=== PATIENT | male | born 1955 | race Caucasian/White ===

== ENCOUNTER 2020-06-03 12:17 | Outpatient (CLI) | payer MEDICARE | END 2020-06-03 12:18 | disposition home or self-care (01) | LOC: COV 12:17 | PROVIDERS: ATTEND Family Medicine | DX: R06.02 Shortness of breath (principal); M79.10 Myalgia, unspecified site; R53.83 Other fatigue; R68.83 Chills (without fever); R19.7 Diarrhea, unspecified; R43.8 Other disturbances of smell and taste; Z20.828 Contact with and (suspected) exposure to other viral communicable diseases ==

== ENCOUNTER 2021-04-15 08:24 | Emergency (ER) | payer MEDICARE, MEDICAID ==
[2021-04-15] MEDS ORDERED: KETOROLAC 30 MG/ML VIAL IVP STA (08:55)
[2021-04-15] MEDS ORDERED: DEXAMETHASONE 10 MG/ML VIAL IVP STA (08:55)
--- NOTE | 2021-04-15 08:57 | ED Physician Documentation ---
History of Present Illness - Stated complaint Stated Complaint: POST SURGICAL PX - Chief complaint Chief Complaint: Cardiac - History obtained from History obtained from: Family - History of Present Illness Timing: Enter time (1400), Yesterday - Additonal information Additional information: 65-year-old male who has recently had a stent put into the right common iliac artery about 4 days ago has now developed acute back pain and pain in the right leg. The patient states that for the past 2 years he has not been able to walk more than 50 feet secondary to pain and cramping in his right leg. He has had this repaired with a stent done in [place] 4 days ago. He subsequently has been able to walk considerably longer distance and he has been walking around his sister's house around the outside. He felt that this was going well. Yesterday at about 2:00 in the afternoon he was sitting in the sun when he had the sudden onset of pain in his back radiating around to the left side and pain into his right leg. Pain in the right leg is to the calf anteriorly and he is still able to walk and has a warm foot. Review of Systems Constitutional: denies: Fever Eyes: denies: Decreased vision Ears: denies: Ear pain Nose: denies: Congestion Throat: denies: Sore throat Cardiac: denies: Chest pain / pressure, Palpitations Respiratory: denies: Dyspnea, Cough GI: denies: Abdominal Pain, Nausea, Vomiting, Constipation, Diarrhea : denies: Dysuria, Frequency Skin: denies: Rash Musculoskeletal: reports: Back pain, Extremity pain. denies: Neck pain Neurologic: denies: Generalized weakness, Focal weakness, Numbness PD PAST MEDICAL HISTORY - Past Medical History Cardiovascular: Hypertension, High cholesterol, Coronary artery disease Endocrine/Autoimmune: Type 2 diabetes - Past Surgical History Past Surgical History: Yes Cardiovascular: Coronary stent - Present Medications Home Medications: Ambulatory Orders Medication Instructions Recorded Confirmed Atenolol 50 mg PO BID 11/12/13 04/15/21 Cholecalciferol (Vitamin D3) 400 unit PO DAILY 11/12/13 04/15/21 [Vitamin D] HYDROcod/ACETAM 5/325 [Vicodin 1 - 2 ea PO Q6H PRN 11/12/13 04/15/21 5/325] metFORMIN [Glucophage] 1,500 mg PO DAILY 11/12/13 04/15/21 Aspirin [[place] Aspirin] 81 mg PO DAILY 04/15/21 04/15/21 Clopidogrel [Plavix] 75 mg PO DAILY 04/15/21 04/15/21 Cyclobenzaprine [Flexeril] 10 mg PO TID PRN #20 tablet 04/15/21 Gabapentin [Neurontin] 300 mg PO TID 04/15/21 04/15/21 HYDROcod/ACETAM 5/325 [[place] 5/325] 1 - 2 tablet PO Q6H PRN #14 tablet 04/15/21 Lactobacillus Combination No.4 1 cap PO DAILY 04/15/21 04/15/21 [Probiotic] Losartan [Cozaar] 100 mg PO DAILY 04/15/21 04/15/21 Mag Carb/Al Hydrox/Alginic AC PRN 04/15/21 [Gaviscon Extra Strength Liquid] Nitroglycerin [Nitrostat] 1 tab SL DAILY PRN 04/15/21 04/15/21 Pramipexole Di-HCl [Mirapex] 1 tab PO TID 04/15/21 04/15/21 Prazosin [Minipress] 1 mg PO DAILY 04/15/21 04/15/21 Rosuvastatin Calcium [Crestor] 20 mg PO DAILY 04/15/21 04/15/21 Sitagliptin Phos/Metformin HCl 1 tab PO DAILY 04/15/21 04/15/21 [Janumet Xr 50-1,000 mg Tablet] buPROPion [Wellbutrin Sr] 150 mg PO BID 04/15/21 04/15/21 hydroCHLOROthiazide [Hydrodiuril] 25 mg PO DAILY 04/15/21 04/15/21 - Allergies Allergies/Adverse Reactions: Allergies Allergy/AdvReac Type Severity Reaction Status Date / Time No Known Drug Allergies Allergy Verified 04/15/21 08:38 - Social History Does the pt smoke?: Yes Smoking Status: Current every day smoker PD ED PE NORMAL - Vitals Vital signs reviewed: Yes (hypertensive ) - General General: Alert and oriented X 3, No acute distress, Well developed/nourished - HEENT HEENT: Atraumatic, PERRL, EOMI - Neck Neck: Supple, no meningeal sign, No bony TTP - Cardiac Cardiac: RRR, No murmur - Respiratory Respiratory: No respiratory distress, Clear bilaterally - Abdomen Abdomen: Normal bowel sounds, Soft, Non tender, Non distended, No organomegaly - Back Back: No CVA TTP, No spinal TTP, Other (no tenderness to the back with pain localized to L2 radiating to the anterior abdomen. ) - Derm Derm: Normal color, Warm and dry, No rash - Extremities Extremities: No deformity, No edema, Other (nice warm foot bilat with trace edema. ) - Neuro Neuro: Alert and oriented X 3, asic design engineer 2-12 intact, No motor deficit, No sensory deficit, Normal speech Eye Opening: Spontaneous Motor: Obeys Commands Verbal: Oriented GCS Score: 15 - Psych Psych: Normal mood, Normal affect Results - Vitals Vitals: Vital Signs - 24 hr 04/15/21 04/15/21 04/15/21 08:34 10:38 12:00 Temperature 36.3 C L 36.5 C Heart Rate 68 69 67 Respiratory 18 16 15 Rate Blood Pressure 158/70 H 173/80 H 153/75 H O2 Saturation 98 98 99 04/15/21 12:55 Temperature Heart Rate 65 Respiratory 14 Rate Blood Pressure 160/100 H O2 Saturation 99 Oxygen O2 Source Room air - Labs Labs: Laboratory Tests 04/15/21 04/15/21 09:07 09:07 WBC 7.4 RBC 3.75 L Hgb 11.6 L Hct 33.0 L MCV 88.0 MCH 30.9 MCHC 35.2 RDW 12.6 Plt Count 99 L MPV 8.6 Neut # (Auto) 5.5 Lymph # (Auto) 1.0 L Mcminn # (Auto) 0.8 Eos # (Auto) 0.1 Baso # (Auto) 0.0 Absolute Nucleated RBC 0.00 Nucleated RBC % 0.0 Sodium 133 L Potassium 4.6 Chloride 99 L Carbon Dioxide 26 Anion Gap 8.0 BUN 31 H Creatinine 1.5 H Estimated GFR (MDRD) 47 L Glucose 255 H Calcium 9.1 Total Bilirubin 0.5 AST 15 ALT 17 Alkaline Phosphatase 54 Total Protein 7.3 Albumin 4.0 Globulin 3.3 Albumin/Globulin Ratio 1.2 Lipase 36 - Rads (name of study) CTA ab/pel Radiology: Prelim report reviewed PD MEDICAL DECISION MAKING - ED course Complexity details: reviewed old records, reviewed results, re-evaluated patient, considered differential, d/w patient, d/w vocational rehabilitation consultant ([place] program management professional for Dr. Vences recommends close interval follow up. Checked femoral pulse +. No signs of inflamation to the site. ) ED course: 65-year-old male who has been extremely sedentary over the past 2 years secondary to claudication has had his claudication fixed in his right lower extremity and he is now ambulating significantly more than he has recently. He has now developed pain in his back. I suspect this is the culprit. He has had a recent stent placement and we checked his stent with a CT angio with runoff and we find the runoff to be adequate and it is not possible to evaluate the recent stent. Clinically the patient has improvement in his pain with treatment with Toradol and dexamethasone he has further improvement with the use of morphine. He is able to get up and ambulate in the emergency department without pain to either leg. Pain in his back is improved. I suspect this is a typical postoperative feeling better overdid it new symptoms. We did do a bladder scan after the patient voided with 164ml residual. CTA lower ext. Impression: 1. Possible in-stent occlusion of the right common iliac artery stent however due to the narrow caliber of the stent and the artifact from the metallic stent, opacification within the stent is not well evaluated. Nevertheless distal to the stent right external iliac artery and right leg arteries distally are patent. Catheter angiogram would be necessary for better evaluation if needed. The bladder is significantly distended. Multifocal areas of atherosclerotic calcification and areas of moderate stenosis as above. Departure - Departure Disposition: 01 Home, Self Care Clinical Impression: Sciatica Qualifiers: Laterality: right Qualified Code(s): M54.31 - Sciatica, right side Condition: Stable Instructions: ED Sciatica Follow-Up: Mejia Vences MD [Physician No Access] - [facility] [Provider Group] Prescriptions: Cyclobenzaprine [Flexeril] 10 mg PO TID PRN #20 tablet PRN Reason: Spasms HYDROcod/ACETAM 5/325 [[place] 5/325] 1 - 2 tablet PO Q6H PRN #14 tablet PRN Reason: Pain
[2021-04-15 09:15] LABS: BASOPHILS % (AUTO) 0.1 %; EOSINOPHILS # (AUTO) 0.1 10^3/uL (0.0-0.7); EOSINOPHILS % (AUTO) 1.3 %; HGB - HEMOGLOBIN 11.6 g/dL (14.0-18.0); LYMPHOCYTES % (AUTO) 13.9 %; MEAN CORPUSCULAR HEMOGLOBIN 30.9 pg (27.0-31.0); MEAN CORPUSCULAR HGB CONC 35.2 g/dL (32.0-36.0); MEAN PLATELET VOLUME 8.6 fL (7.4-11.4); MONOCYTES # (AUTO) 0.8 10^3/uL (0.0-1.0); MONOCYTES % (AUTO) 10.1 %; NEUTROPHILS # (AUTO) 5.5 10^3/uL (1.5-6.6); NEUTROPHILS % (AUTO) 73.9 %; PLT - PLATELET COUNT 99 10^3/uL (130-450); RED BLOOD COUNT 3.75 10^6/uL (4.70-6.10); RED CELL DISTRIBUTION WIDTH 12.6 % (12.0-15.0); WHITE BLOOD COUNT 7.4 x10^3/uL (4.8-10.8)
[2021-04-15 09:26] LABS: ALBUMIN/GLOBULIN RATIO 1.2 (1.0-2.2); BILIRUBIN,TOTAL 0.5 mg/dL (0.2-1.0); CALCIUM 9.1 mg/dL (8.5-10.3); CREATININE 1.5 mg/dL (0.6-1.2); POTASSIUM 4.6 mmol/L (3.5-5.0); TOTAL PROTEIN 7.3 g/dL (6.7-8.2)
[2021-04-15] MEDS ORDERED: IOVERSOL 320 100 ML VIAL IVP ONE ×2 (09:33→12:07)
[2021-04-15] MEDS ORDERED: SODIUM CHLORIDE 0.9% 1,000 ML IV STA (10:00)
--- NOTE | 2021-04-15 10:58 | CT Report ---
PROCEDURE: ANGIO ABD RUNOFF W/WO - B/L INDICATIONS: stent placed 4 d ago sudden severe pain back leg CONTRAST: IV CONTRAST: Optiray 320 ml: 125 PO CONTRAST: *NO PO CONTRAST TECHNIQUE: After the administration of intravenous contrast, 2 and 5 mm sections acquired from T12 to the feet, with optional delayed image acquisition from the knees to the feet. 3-dimensional maximum intensity projection (MIP) coronal and sagittal reformats, and/or 3-dimensional volume rendering reformatting w as then performed. For radiation dose reduction, the following was used: automated exposure control , adjustment of mA and/or kV according to patient size. COMPARISON: None. FINDINGS: Image quality: Excellent. VASCULAR: The aorta has heavy atherosclerotic calcifications. The celiac trunk and SMA are patent. Th ere are 2 renal arteries bilaterally which are patent but have ostial atherosclerotic disease likely causing at least mild stenosis. The TRINA is patent. A right common iliac artery stent has been placed. Artifact from the stent limits visibility of the degree of opacification within the stent and in-joe nt thrombus cannot be excluded. Distal to the stent however the external iliac artery is patent, salomon reyes this could be filling from the internal iliac artery. The right common and deep femoral arteries are patent. There is a moderate stenosis in the right dist al SFA. The right popliteal artery is patent. The right infrapopliteal arteries have diffuse atherosc lerotic disease but are patent with a three-vessel runoff. The left common iliac artery has a moderate stenosis at the origin. The left internal and external il iac arteries have multifocal atherosclerotic disease with no focal stenosis. The left common femoral artery has a moderate stenosis. The left deep femoral artery is patent. The left distal superficial f emoral artery has a moderate stenosis. The left popliteal artery is patent. The left infrapopliteal a rteries have diffuse atherosclerotic disease but are patent with a three-vessel runoff. ABDOMEN: Lung bases: Lung bases are clear. Heart size is normal. Solid organs: Liver: The liver has no mass or intrahepatic biliary ductal dilatation. [] Biliary: The gallbladder demonstrates multiple layering stones. There is no gallbladder wall thickeni ng or pericholecystic fluid. [] Pancreas: The pancreas has no mass or ductal dilatation. No surrounding inflammation. [] Spleen: Normal size. No mass. [] Adrenal glands: No hypertrophy or nodules. [] Kidneys: No obstructive calculus or hydronephrosis. No solid mass. No cystic mass. [] Bowel: The distal esophagus and stomach are normal. The small bowel has a normal caliber and appeara nce. The terminal ileum is normal. The large bowel has diverticulosis with no evidence of diverticu litis. [] Free air/free fluid: No free air or free fluid. [] Abdominal wall: No abdominal wall mass or hernia. [] Retroperitoneum: No retroperitoneal or mesenteric adenopathy by size criteria. [] Lymph nodes: No adenopathy. [] Bones: No suspicious bony lesions. Multilevel degenerative changes [] PELVIS: Genitourinary: [Bladder wall thickness is normal. ] The bladder is distended. Miscellaneous: [No inguinal hernias or adenopathy. ] [] Bones: [No suspicious bony lesions. No vertebral body compression fractures. ] IMPRESSION: 1. Possible in-stent occlusion of the right common iliac artery stent, however due to the narrow kim aureliano of the stent and artifact from the metallic stent, the opacification within the stent is not well evaluated. Nevertheless distal to the stent the right external iliac artery and right leg arteries d istally are patent. Catheter angiogram would be necessary for better evaluation if needed. 2. The bladder is significantly distended. 3. Multifocal areas of atherosclerotic calcification and areas of moderate stenosis as above. Reviewed by: Lawson Leung on 04/15/2021 10:57 AM PDT Approved by: Lawson Leung on 04/15/2021 10:57 AM PDT Station ID: [id number]
[2021-04-15] MEDS ORDERED: MORPHINE 2 MG/ML CARPUJECT IVP STA (11:07)
[2021-04-15] MEDS ORDERED: ONDANSETRON 4 MG/2 ML VIAL IVP STA (11:07)
[2021-04-15 12:56] VITALS: BP 160/100
== END 2021-04-15 13:05 | disposition home or self-care (01) ==
LOC: ED 08:24
DX: M54.31 Sciatica, right side (principal); Z95.820 Peripheral vascular angioplasty status with implants and grafts
CPT/HCPCS: 36415; 75635; 80053; 83690; 85025; 96374; 96375; 99284; 99285; Q9967

== ENCOUNTER 2022-04-27 08:00 | Outpatient (CLI) | payer MEDICARE, MEDICAID ==
[2022-04-27 17:35] LABS: BASOPHILS % (AUTO) 0.1 %; EOSINOPHILS # (AUTO) 0.1 10^3/uL (0.0-0.7); EOSINOPHILS % (AUTO) 0.4 %; HCT - HEMATOCRIT 28.1 % (42.0-52.0); HGB - HEMOGLOBIN 9.6 g/dL (14.0-18.0); LYMPHOCYTES # (AUTO) 0.9 10^3/uL (1.5-3.5); LYMPHOCYTES % (AUTO) 6.3 %; MEAN CORPUSCULAR HEMOGLOBIN 29.8 pg (27.0-31.0); MEAN CORPUSCULAR HGB CONC 34.2 g/dL (32.0-36.0); MEAN CORPUSCULAR VOLUME 87.3 fL (80.0-94.0); MEAN PLATELET VOLUME 8.7 fL (7.4-11.4); MONOCYTES # (AUTO) 1.2 10^3/uL (0.0-1.0); MONOCYTES % (AUTO) 8.6 %; NEUTROPHILS # (AUTO) 11.7 10^3/uL (1.5-6.6); PLT - PLATELET COUNT 192 10^3/uL (130-450); RED BLOOD COUNT 3.22 10^6/uL (4.70-6.10); RED CELL DISTRIBUTION WIDTH 12.8 % (12.0-15.0); WHITE BLOOD COUNT 13.9 x10^3/uL (4.8-10.8)
[2022-04-27 18:01] LABS: ALBUMIN 3.1 g/dL (3.2-5.5); ALBUMIN/GLOBULIN RATIO 0.8 (1.0-2.2); BILIRUBIN,TOTAL 0.5 mg/dL (0.2-1.0); CALCIUM 8.4 mg/dL (8.5-10.3); CREATININE 1.5 mg/dL (0.6-1.2); POTASSIUM 4.5 mmol/L (3.5-5.0); TOTAL PROTEIN 6.8 g/dL (6.7-8.2)
== END 2022-04-27 23:59 | disposition home or self-care (01) ==
LOC: LAB.N 08:00
PROVIDERS: ATTEND Registered Nurse
DX: D72.828 Other elevated white blood cell count (principal); R31.9 Hematuria, unspecified; R79.82 Elevated C-reactive protein (CRP)
CPT/HCPCS: 36415; 80053; 85025; 86140; 87086

== ENCOUNTER 2023-05-19 19:18 | Emergency (ER) | payer MEDICARE, MEDICAID ==
--- NOTE | 2023-05-19 20:13 | ED Physician Documentation ---
PD HPI UPPER EXT INJURY - Stated complaint Stated Complaint: GLF,L ARM LAC - Chief complaint Chief Complaint: Ext Problem - History obtained from History obtained from: Patient - Additonal information Additional information: HPI from patient. Approximately 1 hour prior to arrival, patient was walking down stairs at his home when he missed the last step, causing him to fall onto outstretched hand. He complains of sudden onset of left wrist and left distal forearm pain. He also sustained a left forearm skin tear from the fall. Patient is right-hand dominant. Patient is up-to-date on tetanus. Patient denies head injury, denies any other injury besides the left forearm/wrist Review of Systems Skin: reports: Other (Skin tear) Musculoskeletal: reports: Extremity pain, Joint pain. denies: Neck pain, Back pain, Extremity swelling, Joint swelling, Pain with weight bearing Neurologic: denies: Focal weakness, Numbness, Headache, Head injury PD PAST MEDICAL HISTORY - Past Medical History Past Medical History: Yes Cardiovascular: Hypertension, High cholesterol, Coronary artery disease Endocrine/Autoimmune: Type 2 diabetes - Past Surgical History Past Surgical History: Yes Cardiovascular: Coronary stent - Present Medications Home Medications: Ambulatory Orders Medication Instructions Recorded Confirmed Atenolol 50 mg PO BID 11/12/13 04/15/21 Cholecalciferol (Vitamin D3) 400 unit PO DAILY 11/12/13 04/15/21 [Vitamin D] HYDROcod/ACETAM 5/325 [Vicodin 1 - 2 ea PO Q6H PRN 11/12/13 04/15/21 5/325] metFORMIN [Glucophage] 1,500 mg PO DAILY 11/12/13 04/15/21 Aspirin [[place] Aspirin] 81 mg PO DAILY 04/15/21 04/15/21 Clopidogrel [Plavix] 75 mg PO DAILY 04/15/21 04/15/21 Cyclobenzaprine [Flexeril] 10 mg PO TID PRN #20 tablet 04/15/21 Gabapentin [Neurontin] 300 mg PO TID 04/15/21 04/15/21 HYDROcod/ACETAM 5/325 [[place] 5/325] 1 - 2 tablet PO Q6H PRN #14 tablet 04/15/21 Lactobacillus Combination No.4 1 cap PO DAILY 04/15/21 04/15/21 [Probiotic] Losartan [Cozaar] 100 mg PO DAILY 04/15/21 04/15/21 Mag Carb/Al Hydrox/Alginic AC PRN 04/15/21 [Gaviscon Extra Strength Liquid] Nitroglycerin [Nitrostat] 1 tab SL DAILY PRN 04/15/21 04/15/21 Pramipexole Di-HCl [Mirapex] 1 tab PO TID 04/15/21 04/15/21 Prazosin [Minipress] 1 mg PO DAILY 04/15/21 04/15/21 Rosuvastatin Calcium [Crestor] 20 mg PO DAILY 04/15/21 04/15/21 Sitagliptin Phos/Metformin HCl 1 tab PO DAILY 04/15/21 04/15/21 [Janumet Xr 50-1,000 mg Tablet] buPROPion [Wellbutrin Sr] 150 mg PO BID 04/15/21 04/15/21 hydroCHLOROthiazide [Hydrodiuril] 25 mg PO DAILY 04/15/21 04/15/21 - Allergies Allergies/Adverse Reactions: Allergies Allergy/AdvReac Type Severity Reaction Status Date / Time No Known Drug Allergies Allergy Verified 05/19/23 19:30 - Social History Does the pt smoke?: Yes Smoking Status: Current every day smoker Does the pt drink ETOH?: No Does the pt have substance abuse?: Yes Substance Use and Type: Marijuana - Immunizations Immunizations are current?: No - POLST Patient has POLST: No PD ED PE NORMAL - Vitals Vital signs reviewed: Yes - General General: Alert and oriented X 3, No acute distress, Well developed/nourished - Neuro Neuro: No motor deficit (full strength liquid center assembler, finger extension, finger abduction), No sensory deficit (LTS intact left hand, fingers) PD ED PE EXPANDED - Extremities BREANNA UE/Hands Visual: 1 - swelling, tenderness 2 - abrasion (skin tear) Results - Vitals Vitals: Vital Signs - 24 hr 05/19/23 05/19/23 19:24 21:38 Temperature 37.0 C 37.0 C Heart Rate 84 82 Respiratory 18 16 Rate Blood Pressure 152/79 H 140/80 H O2 Saturation 98 100 Oxygen O2 Source Room air - Rads (name of study) left FA xrays Relevant Findings:: Prelim report reviewed, See rad report PD Medical Decision Making - ED course Complexity details: reviewed results, re-evaluated patient, considered differential, d/w patient, d/w family ED course: No evidence of injury (fracture, dislocation) on plain-film left forearm x-rays. A left wrist Velcro splint is placed for comfort and an to speed healing. Bacitracin is placed on the left forearm skin tear and dressing applied. X-ray results reviewed with patient, advised to follow-up with primary care provider in 3 to 5 days if his symptoms have not significantly improved by then. I encouraged him to wear the splint during the day for the next 5 to 7 days. Departure - Departure Disposition: 01 Home, Self Care Clinical Impression: Skin tear Left wrist sprain Qualifiers: Encounter type: initial encounter Qualified Code(s): S63.502A - Unspecified sprain of left wrist, initial encounter Condition: Good Instructions: ED Avulsion Dermal, ED Splint Care Velcro, ED Sprain Wrist Follow-Up: Tisha Snow MD [Primary Care Provider] - (3-5 days if symptoms persist) Comments: The x-rays do not show any evidence of fracture nor dislocation. You are being provided a splint because decreasing mobilization by using the splint will speed healing of what is likely a wrist sprain. Follow-up with your primary care provider in 3 to 5 days if your pain is not significantly improving by then. Forms: PCP List Discharge Date/Time: 05/19/23 21:38
--- NOTE | 2023-05-19 21:01 | XRAY Report ---
PROCEDURE: Forearm LT INDICATIONS: fall, left FA pain, tenderness TECHNIQUE: 2 views of the forearm were acquired. COMPARISON: None. FINDINGS: Bones: No fractures or dislocations. No suspicious bony lesions. Soft tissues: No suspicious soft tissue calcifications or masses. IMPRESSION: No gross acute forearm fracture or dislocation is seen. Reviewed by: Nikolas Cox MD on 05/19/2023 8:59 PM PST Approved by: Nikolas Cox MD on 05/19/2023 8:59 PM [facility] Station ID: [id number]
[2023-05-19] MEDS ORDERED: BACITRACIN ZINC OINT 1 PACKET TOP STA (21:19)
[2023-05-19 21:41] VITALS: BP 140/80; O2SAT 100
== END 2023-05-19 21:38 | disposition home or self-care (01) ==
LOC: ED 19:18
DX: S51.812A Laceration without foreign body of left forearm, initial encounter (principal); S63.502A Unspecified sprain of left wrist, initial encounter; W10.9XXA Fall (on) (from) unspecified stairs and steps, initial encounter; Y93.89 Activity, other specified; Y92.009 Unspecified place in unspecified non-institutional (private) residence as the place of occurrence of the external cause; F17.200 Nicotine dependence, unspecified, uncomplicated
CPT/HCPCS: 73090; 99282; A9270

== ENCOUNTER 2023-09-07 11:09 | Outpatient (CLI) | payer MEDICARE, MEDICAID | END 2023-09-07 11:10 | disposition critical access hospital (66) | LOC: EMS 11:09 | DX: R06.09 Other forms of dyspnea (principal); R19.7 Diarrhea, unspecified; R06.2 Wheezing | CPT/HCPCS: A0425; A0427 ==

== ENCOUNTER 2023-09-07 11:36 | Emergency (ER) | payer MEDICARE, MEDICAID ==
--- NOTE | 2023-09-07 12:43 | ED Physician Documentation ---
PD HPI DYSPNEA - Stated complaint Stated Complaint: SOA/COLD LIKE SX - Chief complaint Chief Complaint: Resp - Additional information Additional information: 68-year-old male with COPD who smokes about a pack per day presents emergency department for increased shortness of breath. Patient says that he has been having upper respiratory infection symptoms now for the last 3 to 4 days he lives at home with family he is normally on room air has never required supplemental oxygen. Patient says that he was having a hard time walking from his bedroom to the bathroom without feeling like he was going to pass out because of how much he was having a hard time breathing. On room air patient is satting around 86 to 85%. He denies any chest pain unsure if he had any fevers or chills at home. He does not have any COPD medications no inhalers or anything else at home. And route he received a DuoNeb as well as 125 mg of Solu-Medrol via EMS. PD PAST MEDICAL HISTORY - Past Medical History Cardiovascular: Hypertension, High cholesterol, Coronary artery disease Endocrine/Autoimmune: Type 2 diabetes - Past Surgical History Past Surgical History: Yes Cardiovascular: Coronary stent - Present Medications Home Medications: Ambulatory Orders Medication Instructions Recorded Confirmed Cholecalciferol (Vitamin D3) 400 unit PO DAILY 11/12/13 09/07/23 [Vitamin D] Aspirin [[place] Aspirin] 81 mg PO DAILY 04/15/21 09/07/23 Gabapentin [Neurontin] 600 mg PO TID 04/15/21 09/07/23 Lactobacillus Combination No.4 1 cap PO DAILY 04/15/21 09/07/23 [Probiotic] Mag Carb/Al Hydrox/Alginic AC 1 tab PO PRN PRN 04/15/21 09/07/23 [Gaviscon Extra Strength Liquid] Pramipexole Di-HCl [Mirapex] 1 tab PO TID 04/15/21 09/07/23 Rosuvastatin Calcium [Crestor] 20 mg PO HS 04/15/21 09/07/23 Albuterol Sulf [Ventolin Hfa 1 - 2 puffs INH Q4HR PRN #1 gm 09/07/23 Inhaler] Clopidogrel [Plavix] 75 mg PO HS 09/07/23 09/07/23 Doxycycline [Vibramycin] 100 mg PO ONCE 5 Days #5 tablet 09/07/23 Hydrocodone/Acetaminophen 1 tab PO Q4HR 09/07/23 09/07/23 [Hydrocodone-Acetamin 10-325 mg] Losartan [Cozaar] 100 mg PO HS 09/07/23 09/07/23 SITagliptin [Januvia] 100 mg PO DAILY 09/07/23 09/07/23 Tamsulosin [Flomax] 0.4 mg PO HS 09/07/23 09/07/23 amLODIPine [Norvasc] 10 mg PO DAILY 09/07/23 09/07/23 glipiZIDE [Glipizide] 10 mg PO BID 09/07/23 09/07/23 predniSONE [Deltasone] 20 mg PO [id number] 10 Days #21 tab 09/07/23 - Allergies Allergies/Adverse Reactions: Allergies Allergy/AdvReac Type Severity Reaction Status Date / Time No Known Drug Allergies Allergy Verified 09/07/23 11:51 - Social History Does the pt smoke?: Yes Smoking Status: Current every day smoker Does the pt drink ETOH?: No Does the pt have substance abuse?: Yes - Immunizations Immunizations are current?: No - POLST Patient has POLST: No PD ED PE NORMAL - Vitals Vital signs reviewed: Yes - General General: Alert and oriented X 3, No acute distress, Well developed/nourished - HEENT HEENT: Atraumatic - Neck Neck: Supple, no meningeal sign - Cardiac Cardiac: RRR, No murmur, No gallop, Strong equal pulses - Respiratory Respiratory: Other (bilateral wheezing and ronchi) - Derm Derm: Normal color, Warm and dry, No rash - Extremities Extremities: Other (1+ pitting edema bilaterally) Results - Vitals Vitals: Vital Signs - 24 hr 09/07/23 09/07/23 09/07/23 11:40 13:13 13:51 Temperature 36.8 C Heart Rate 66 85 61 Respiratory 18 20 16 Rate Blood Pressure 143/66 H 169/77 H O2 Saturation 92 92 If not protocol 1 : Oxygen Flow, liters/minute 09/07/23 09/07/23 09/07/23 15:00 15:08 16:15 Temperature Heart Rate 84 68 64 Respiratory 18 18 16 Rate Blood Pressure 152/82 H 146/77 H 141/71 H O2 Saturation 91 L 97 91 L If not protocol : Oxygen Flow, liters/minute Oxygen O2 Source Room air - Labs Labs: Laboratory Tests 09/07/23 09/07/23 09/07/23 11:57 13:20 13:20 WBC 8.3 RBC 4.64 L Hgb 14.0 Hct 40.2 L MCV 86.6 MCH 30.2 MCHC 34.8 RDW 12.5 Plt Count 96 L MPV 8.8 Neut # (Auto) 7.1 H Lymph # (Auto) 0.8 L [place] # (Auto) 0.2 Eos # (Auto) 0.0 Baso # (Auto) 0.0 Absolute Nucleated RBC 0.00 Nucleated RBC % 0.0 Manual Slide Review Indicated RBC Morph Micro Appear 1+ ANISOCYTOSIS Sodium 136 Potassium 5.0 H Chloride 106 Carbon Dioxide 23 Anion Gap 7.0 BUN 37 H Creatinine 2.1 H Estimated GFR (MDRD) 31 L Glucose 302 H Calcium 9.6 Magnesium 2.0 Total Bilirubin 0.4 AST 22 ALT 21 Alkaline Phosphatase 95 Total Protein 8.0 Albumin 4.3 Globulin 3.7 Albumin/Globulin Ratio 1.2 Nasal Adenovirus (PCR) NOT DETECTED Nasal B. parapertussis DNA (PCR) NOT DETECTED Nasal Coronavir 229E PCR NOT DETECTED Nasal Coronavir HKU1 PCR DETECTED A Nasal Coronavir NL63 PCR NOT DETECTED Nasal Coronavir OC43 PCR NOT DETECTED Nasal Enterovir/Rhinovir PCR NOT DETECTED Nasal Influenza B PCR NOT DETECTED Nasal Influenza A PCR NOT DETECTED Nasal Parainfluen 1 PCR NOT DETECTED Nasal Parainfluen 2 PCR NOT DETECTED Nasal Parainfluen 3 PCR NOT DETECTED Nasal Parainfluen 4 PCR NOT DETECTED Nasal RSV (PCR) NOT DETECTED Nasal B.pertussis DNA PCR NOT DETECTED Nasal C.pneumoniae (PCR) NOT DETECTED Lencho Human Metapneumo PCR NOT DETECTED Nasal M.pneumoniae (PCR) NOT DETECTED Nasal SARS-CoV-2 (PCR) NOT DETECTED - Rads (name of study) Chest x-ray Relevant Findings:: Final report received, EMP independent interpretation of test, Other (No cardiopulmonary abnormalities) PD Medical Decision Making - ED course ED course: 68-year-old male presents emergency department for worsening shortness of breath. Labs are complete and did show mild anemia, RBC 4.61, hematocrit 40.2 with elevated neutrophils at 7.1 and suppressed lymphocytes at 0.8. Chemistry shows that patient is most likely dehydrated and potassium elevated at 5.0, BUN 37, creatinine 2.1, GFR 31, glucose 302. On respiratory panel patient did test positive for romero virus and does not appear to be COVID-19. Chest x-ray was complete no cardial pulmonary processes no pneumonia no cardiomegaly Originally patient was hypoxic on room air about 85-86%. After receiving nebulizer treatment as well as steroids and doxycycline patient said that he is feeling significantly better. Patient was offered hospitalization for his COPD exacerbation due to romero virus but patient said that he wanted to try recovering at home. He has a follow-up appoint with his primary care provider on Monday that he says that he will prioritize and make sure that he will do everything to not miss it. A prescription was sent for steroid taper as well as doxycycline and albuterol inhaler to help with his COPD exacerbation he was also told to follow-up with his primary care provider to talk about COPD medications that he should be chronically on at home. Smoking cessation was discussed. Patient was given very strict return precautions and told if he feels any worse in any way shape or form to present back to the emergency department. He was also informed that with his type 2 diabetes and his elevated blood sugar to be very very cautious with his diet going home because the steroid taper will increase his blood sugars and he was told to keep a close eye on this he says that he has a glucometer at home. Departure - Departure Disposition: , Self Care Clinical Impression: COVID, COPD exacerbation Condition: Good Instructions: COPD Dc, ED Viral Syndrome Prescriptions: Albuterol Sulf [Ventolin Hfa Inhaler] 1 - 2 puffs INH Q4HR PRN #1 gm PRN Reason: Wheezing predniSONE [Deltasone] 20 mg PO [id number] 10 Days #21 tab Doxycycline [Vibramycin] 100 mg PO ONCE 5 Days #5 tablet Comments: Thank you for trusting us with your care. I have sent a prescription for prednisone which is a steroid to help with your COPD exacerbation as well as doxycycline will also help with your COPD exacerbation to [facility]. I have also sent an inhaler prescription there as well you can take 1 to 2 puffs every 4 hours as needed for shortness of breath. Would strongly encourage you to quit smoking because older again the longer he smoke it is going to be harder to recover from these viruses. He did test positive for COVID it does not look like it is COVID-19. Tylenol ibuprofen for any pain and discomfort or any fevers or chills. Make sure that you are drinking plenty of water as we discussed do it you can to quit smoking. Follow-up with your primary care provider on Monday and talk with them about any scheduled routine medications for your COPD. Please come back to the emergency department for having any worsening shortness of breath, chest pain, or any other concerning symptoms. Forms: PCP List Discharge Date/Time: 09/07/23 16:25
[2023-09-07] MEDS: ALBUTEROL 1 PUFF INH STA (13:02)
--- NOTE | 2023-09-07 13:23 | XRAY Report ---
PROCEDURE: Chest 2V INDICATIONS: SOB TECHNIQUE: 2 views of the chest were acquired. COMPARISON: Chest radiograph on July 20, 2017. FINDINGS: Surgical changes and devices: None. Lungs and pleura: No pleural effusions or pneumothorax. Lungs are clear. Mediastinum: Mediastinal contours appear normal. Heart size is normal. Bones and chest wall: No suspicious bony lesions. Overlying soft tissues appear unremarkable. IMPRESSION: No acute cardiopulmonary process. Reviewed by: Balbir Mathis MD on 09/07/2023 1:22 PM PST Approved by: Balbir Mathis MD on 09/07/2023 1:22 PM PST Station ID: [id number]
[2023-09-07 13:27] LABS: B. PARAPERTUSSIS- RESP PCR PAN NOT DETECTED; B. PERTUSSIS- RESP PCR PANEL NOT DETECTED; C. PNEUMONIAE- RESP PCR PANEL NOT DETECTED; CORONAVIRUS 229E-RESP PCR NOT DETECTED; CORONAVIRUS HKU1-RESP PCR DETECTED; CORONAVIRUS NL63-RESP PCR NOT DETECTED; CORONAVIRUS OC43-RESP PCR NOT DETECTED; HUMAN METAPNEUMOVIRUS NOT DETECTED; INFLUENZA A- RESP PCR PANEL NOT DETECTED; INFLUENZA B - RESP PCR PANEL NOT DETECTED; M. PNEUMONIAE- RESP PCR PANEL NOT DETECTED; PARAINFLUENZA VIRUS 1 NOT DETECTED; PARAINFLUENZA VIRUS 2 NOT DETECTED; PARAINFLUENZA VIRUS 3 NOT DETECTED; PARAINFLUENZA VIRUS 4 NOT DETECTED; RHINOVIRUS/ENTEROVIRUS NOT DETECTED; RSV- RESP PCR PANEL NOT DETECTED; SARS-CoV-2 -RESP PCR PANEL NOT DETECTED
[2023-09-07 13:37] LABS: BASOPHILS % (AUTO) 0.4 %; EOSINOPHILS % (AUTO) 0.4 %; HCT - HEMATOCRIT 40.2 % (42.0-52.0); LYMPHOCYTES # (AUTO) 0.8 10^3/uL (1.5-3.5); LYMPHOCYTES % (AUTO) 9.2 %; MEAN CORPUSCULAR HEMOGLOBIN 30.2 pg (27.0-31.0); MEAN CORPUSCULAR HGB CONC 34.8 g/dL (32.0-36.0); MEAN CORPUSCULAR VOLUME 86.6 fL (80.0-94.0); MEAN PLATELET VOLUME 8.8 fL (7.4-11.4); MONOCYTES # (AUTO) 0.2 10^3/uL (0.0-1.0); MONOCYTES % (AUTO) 2.9 %; NEUTROPHILS # (AUTO) 7.1 10^3/uL (1.5-6.6); NEUTROPHILS % (AUTO) 86.3 %; RED BLOOD COUNT 4.64 10^6/uL (4.70-6.10); RED CELL DISTRIBUTION WIDTH 12.5 % (12.0-15.0); WHITE BLOOD COUNT 8.3 x10^3/uL (4.8-10.8)
[2023-09-07] MEDS: GABAPENTIN 300 MG CAPSULE PO STA (13:40)
[2023-09-07] MEDS: HYDROcod/ACETAM 10 MG/325 MG TABLET PO STA (13:40)
[2023-09-07 13:41] LABS: SLIDE REVIEW? Indicated
[2023-09-07 13:53] LABS: ALBUMIN 4.3 g/dL (3.2-5.5); ALBUMIN/GLOBULIN RATIO 1.2 (1.0-2.2); BILIRUBIN,TOTAL 0.4 mg/dL (0.2-1.0); CALCIUM 9.6 mg/dL (8.5-10.3); CREATININE 2.1 mg/dL (0.6-1.3)
[2023-09-07 13:57] LABS: PLT - PLATELET COUNT 96 10^3/uL (130-450)
[2023-09-07 13:58] LABS: RBC MORPHOLOGY (MULTIPLE) 1+ ANISOCYTOSIS (NORMAL)
[2023-09-07] MEDS: PRAMIPEXOLE 0.25 MG TABLET PO SCH (14:16)
[2023-09-07] MEDS: DOXYCYCLINE 100 MG TABLET PO STA (15:03)
[2023-09-07 16:21] VITALS: BP 141/71; O2SAT 91
== END 2023-09-07 16:25 | disposition home or self-care (01) ==
LOC: EDUNIT# → ED 11:36
DX: U07.1 COVID-19 (principal); J44.1 Chronic obstructive pulmonary disease with (acute) exacerbation; R60.9 Edema, unspecified; I10 Essential (primary) hypertension; E78.00 Pure hypercholesterolemia, unspecified; E11.9 Type 2 diabetes mellitus without complications; F17.200 Nicotine dependence, unspecified, uncomplicated; Z79.82 Long term (current) use of aspirin; Z79.899 Other long term (current) drug therapy; Z79.02 Long term (current) use of antithrombotics/antiplatelets; Z79.84 Long term (current) use of oral hypoglycemic drugs
CPT/HCPCS: 36415; 71046; 80053; 83735; 85025; 87633; 94640; 94664; 99284; A9270